=== PATIENT | female | born 1940 | race Caucasian/White ===

== ENCOUNTER 2017-06-22 04:48 | Emergency (ER) | payer MEDICARE, BC ==
[~2017-06-22] VITALS: Ht 165.1 cm; Wt 77.1 kg
[2017-06-22 04:59] VITALS: BP 158/75
--- NOTE | 2017-06-22 05:08 | Emergency Room Report ---
History of Present Illness General Chief Complaint: Chest Pain Source: Patient Present Illness HPI Patient present with several different complaints Initially main complaint was chest discomfort and pain This was reported by paramedics Patient reports that she has had multiple epidurals recently And is not sure exactly was injected in the epidurals patient also had glaucoma surgery recently mainly on the left eye Overnight patient has some chest heaviness shortness of breath as well Patient feels that she is having difficulty seeing the correct words at times Denies any vomiting or diarrhea denies any fevers or chills Allergies: Coded Allergies: CODEINE (Verified Allergy, Unknown, 06/22/17) Patient History Past Medical History: see triage record Pertinent Family History: none Last Menstrual Period: n/a Reviewed Nursing Documentation: PMH: Agreed, PSxH: Agreed Nursing Documentation-PMH Hx Cardiac Problems: Yes - afib Hx Diabetes: Yes Review of Systems All Other Systems: negative except mentioned in HPI Physical Exam Vital Signs Date Time Temp Pulse Resp B/P (MAP) Pulse Ox O2 Delivery O2 Flow Rate FiO2 06/22/17 04:38 97.5 77 16 155/55 96 Room Air Sp02 EP Interpretation: reviewed, normal General Appearance: no apparent distress Head: normocephalic, atraumatic Eyes: left eye other - Previous surgery, bilateral upper and lower eyelid erythema, bilateral eye EOMI ENT: hearing grossly normal, normal pharynx, TMs + canals normal, uvula midline Neck: full range of motion, supple, no meningismus, no bony tend Respiratory: no rhonchi, no respiratory distress, no retraction, no accessory muscle use, crackles - in lower lobes Cardiovascular #1: normal peripheral pulses, regular rate, rhythm, no edema, no gallop, no JVD, no murmur Gastrointestinal: normal bowel sounds, non tender, soft, no mass, no organomegaly, non-distended, no guarding, no hernia, no pulsatile mass, no rebound Musculoskeletal: normal inspection Neurologic: oriented x3, responsive, 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 III-XII nml as tested, motor strength/ tone normal, sensory intact Psychiatric: mood/affect normal Skin: normal color, no rash, warm/dry, palpation normal Lymphatic: normal inspection, no adenopathy Medical Decision Making Diagnostic Impression: Primary Impression: ACS (acute coronary syndrome) ER Course Patient is a fairly complex patient with multiple differential to consideration including but not limited to cardiac cardiopulmonary and vascular emergencies Patient upon initial arrival now has refused any further intervention Refusing any blood work she also refused any intervention by paramedics I did notify the patient that without any exam or workup that this can lead to missed diagnoses and possible Patient is awake alert refusing any further intervention X-ray appeared normal And at this time leaving AGAINST MEDICAL ADVICE she was encouraged to please return to the ER she changes her mind EKG Diagnostic Results Rate: normal Rhythm: NSR ST Segments: other - nonspecific St and T-wave changes Rhythm Strip Diag. Results EP Interpretation: yes Rate: 67 Rhythm: NSR, no PVC's, no ectopy Chest X-Ray Diagnostic Results Chest X-Ray Diagnostic Results : Chest X-Ray Ordered: Yes # of Views/Limited/Complete: 1 View Indication: Chest Pain EP Interpretation: Yes Interpretation: no consolidation, no effusion, no pneumothorax, no acute cardiopulmonary disease - mild raised jordana diaphragm on the right Impression: No acute disease Last Vital Signs Date Time Temp Pulse Resp B/P (MAP) Pulse Ox O2 Delivery O2 Flow Rate FiO2 06/22/17 04:38 97.5 77 16 155/55 96 Room Air Status: improved Disposition: AGAINST MEDICAL ADVICE Condition: Unknown RACHEL MCCRARY D.O. Jun 22, 2017 05:08
[2017-06-22 06:30] VITALS: BP 149/79
[2017-06-22 06:50] VITALS: BP 149/79
--- NOTE | 2017-06-22 12:33 | Diagnostic Imaging Report ---
Indication: Chest pain Comparison: None A single view chest radiograph was obtained. Findings: Lung lines are low. Lungs are clear. Heart size is normal. Bones are slightly osteopenic. Cholecystectomy clips noted. Impression: No acute disease
--- NOTE | 2017-06-23 15:41 | Cardiology Report ---
APPROVED REPORT EKG Measurement Heart [id number] Normal sinus rhythm Left axis deviation Cannot rule out Anterior infarct, age undetermined Abnormal ECG
== END 2017-06-22 06:50 | disposition left against medical advice (07) ==
LOC: EDBD 04:48 → EDBEDREQ 04:57 → EMR 06:22
DX: I24.9 Acute ischemic heart disease, unspecified (principal); E11.9 Type 2 diabetes mellitus without complications; Z88.6 Allergy status to analgesic agent; I48.91 Unspecified atrial fibrillation
CPT/HCPCS: 71010; 93005; 99283